=== PATIENT | female | born 1975 | race Caucasian/White ===

== ENCOUNTER 2017-02-05 08:44 | Emergency (ER) | payer MEDICARE, OTHER ==
[2017-02-05 15:28] VITALS: BP 91/62
--- NOTE | 2017-02-05 15:46 | Diagnostic Imaging Report ---
[facility] [address] [facility] [address] [place] [address]. [address] Report Submission Date: Feb 05, 2017 10:41:08 AM CDT Patient Study Name: VICKY GONCALVES Date: Feb 05, 2017 10:14:36 AM CDT Modality Type: CT\SR Gender: F Description: CT PELVIS W/O CONTRAST : 79 Institution: [facility] Physician JAYJAY BARKER - KIARRA CT of the pelvis CLINICAL HISTORY: Fall. Pain. TECHNIQUE: CT of the pelvis is performed in contiguous axial slices with sagittal and coronal reconstructions. FINDINGS: Sacroiliac joints are symmetric. Femoral heads are normally seated in the acetabula. There is no evident fracture. Increased stool is evident within the colon. There is no abnormal free fluid in the pelvis. Muscular structures appear symmetric. IMPRESSION: No fracture. Increased stool in the colon. Electronically signed on Feb 05, 2017 10:41:08 AM CDT by: Rip ZAMBRANO
--- NOTE | 2017-02-05 15:47 | Diagnostic Imaging Report ---
[facility] [address] [facility].[address] [address] Report Submission Date: Feb 05, 2017 10:43:08 AM CDT Patient Study Name: VICKY GONCALVES Date: Feb 05, 2017 10:02:53 AM CDT Modality Type: CR Gender: F Description: LOWER EXTREMITY : 79 Institution: [facility] Physician JAYJAY BARKER - ER Left knee -three views CLINICAL HISTORY: Fall. Pain. FINDINGS: Examination left knee in AP, lateral and sunrise views demonstrates lipohemarthrosis on the cross-table lateral view. There is no evident fracture on these images, but occult fracture needs to be excluded given the presence of fat within the joint. IMPRESSION: Lipohemarthrosis. Rule out occult fracture. Electronically signed on Feb 05, 2017 10:43:08 AM CDT by: Rip ZAMBRANO
--- NOTE | 2017-02-05 15:47 | Diagnostic Imaging Report ---
JAYJAY BARKER [facility] [address] [facility] [address] [address] Report Submission Date: Feb 05, 2017 12:42:18 PM CDT Patient Study Name: VICKY GONCALVES Date: Feb 05, 2017 11:43:30 AM CDT Modality Type: CT\SR Gender: F Description: CT LEG W/O CONTRAST : 79 Institution: [facility] Physician: JAYJAY BARKER Examination: CT extremity History: Possible fracture Comparison exam: Plain film dated 05 February 2017 Technique: Axial imaging with sagittal and coronal reconstruction Findings: On the sagittal reconstructed views within the region of the posterior lateral tibial plateau is a small cortical defect: identified on images 32 - 34 of 49. Remaining cortical margins are intact. Suprapatellar joint effusion. No other gross osseous or soft tissue abnormalities. Impression: Subtle cortical fracture involving the posterolateral margin of the tibial plateau - likely accounts for the joint effusion. Correlate clinically. Electronically signed on Feb 05, 2017 12:42:18 PM CDT by: Romulo ZAMBRANO
--- NOTE | 2017-02-05 15:51 | ED Physician Documentation ---
Fall - HISTORIAN Historian: patient, parent - HPI Stated Complaint: fall Chief Complaint: Fall Additional Information: tripped over weed eater last pm fell on buttocks-parents think pt has pain -not sure where pt demented aphasic from suspect hypoxia during surg small child for conginital glaucome. trouble walking since thionk tra lt lower extremity Onset: yesterday Where: home Context: tripped r: mild, moderate Associated Symptoms:: no loss of consciousness Location of Pain/Injury: denies: head, neck, face, chest, abdomen, upper back, mid back Injury to Right Extremity: none Injury to Left Extremity: other (suspect pelvis lt him-knee) - ROS CONST: no problems NEURO: denies: dizziness MS/SKIN/LYMPH: leg swelling (lt knee psoo swollen tender w/bruise). 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) CVS/RESP: none GI/: denies: problems urinating, nausea, vomiting - PAST HX Past History: other (as above) Allergies/Adverse Reactions: Allergies Allergy/AdvReac Type Severity Reaction Status Date / Time No Known Drug Allergies Allergy Verified 02/05/17 09:25 - SOCIAL HX Smoking History: non-smoker Alcohol Use: none - FAMILY HX Family History: none - REVIEWED ASSESSMENTS Nursing Assessment Reviewed: Yes Vitals Reviewed: Yes ED Results Lab/Radiology - Orders Orders: ED Orders Category Date Time Status CT PELVIS W/O CONTRAST Stat Exams 02/05/[address] W/O [CT PELVIS W/O CONTRAST] Stat Exams 02/05/17 Ordered Fall Physical Exam - Physical Exam General Appearance: mild distress, moderate distress Head: non-tender Neck: non-tender ENT: nml external inspection Resp/CVS: chest non-tender, no ecchymosis, breath sounds nml, no resp. distress , heart sounds nml Abdomen: non-tender Neuro: sensation nml, motor nml, mood/affect nml (for this aphasic patient) Skin: color nml, no rash. No: cyanosis, diaphoresis, pallor, ecchymosis Back: normal inspection Extremities: No: atraumatic, pelvis stable Joint: No: joints nml (pos lalo shoemaker on lt) - Smiley Coma Score Eyes Open: Spontaneous Motor: None (does not definitely localize pain-not unusual per parents) Discharge Clincal Impression: Fracture, tibial plateau Referrals: Dannielle Law MD [Primary Care Provider] - 2 Days Comments: CALLED DR CORDERO discussed cond w/him-she will f/u w DR CORDERO or orthopedic surgeon- pt able to amb fairly well w/knee brace. no pain meds due to pt condition and dkkont want to cover up exaberation condition. Condition: Good Disposition: 01 HOME, SELF-CARE Decision to Admit: NO Decision Time: 15:47
== END 2017-02-05 13:50 | disposition home or self-care (01) ==
LOC: ED 08:44
DX: S82.142A Displaced bicondylar fracture of left tibia, initial encounter for closed fracture (principal); W19.XXXA Unspecified fall, initial encounter; Y93.9 Activity, unspecified; Y99.9 Unspecified external cause status
CPT/HCPCS: 72192; 73562; 73700; 99283

== ENCOUNTER 2018-04-19 08:31 | Outpatient (CLI) | payer MEDICARE, OTHER ==
[2018-04-19 10:02] LABS: APPEARANCE,URINE CLEAR (CLEAR); COLOR,URINE YELLOW (YELLOW); OCCULT BLOOD,URINE NEGATIVE (NEGATIVE); UROBILINOGEN URINE 0.2 Eu (0.2-1.0)
[2018-04-19 10:04] LABS: MEAN CORPUSCULAR HEMOGLOBIN 28.8 pg (28.0-34.0); MEAN CORPUSCULAR VOLUME 94.9 fl (80.0-100.0); eGFR (African) > 60; eGFR (Non-African) > 60
== END 2018-04-19 08:33 ==
LOC: LAB 08:31
PROVIDERS: ATTEND Family Medicine
DX: R41.82 Altered mental status, unspecified (principal); Z79.899 Other long term (current) drug therapy
CPT/HCPCS: 36415; 80053; 80164; 81002; 84443; 85027

== ENCOUNTER 2018-04-27 09:21 | Outpatient (CLI) | payer MEDICARE, OTHER ==
[2018-04-27 18:02] LABS: DIRECT BILIRUBIN <0.2 mg/dL (<0.4); TOTAL PROTEIN 6.6 g/dL (6.0-8.5)
== END 2018-04-27 09:22 ==
LOC: LAB 09:21
PROVIDERS: ATTEND Psychiatry & Neurology Psychiatry
DX: Z79.899 Other long term (current) drug therapy (principal)
CPT/HCPCS: 36415; 80076; 80164

== ENCOUNTER 2018-05-27 09:06 | Outpatient (CLI) | payer MEDICARE, OTHER ==
--- NOTE | 2018-05-27 19:27 | Diagnostic Imaging Report ---
MIKKI KOCH [facility] [address] [facility] [address] [address] Report Submission Date: May 27, 2018 10:28:34 AM CDT Patient Study Name: VICKY GONCALVES Date: May 27, 2018 9:13:05 AM CDT Modality Type: DX Gender: F Description: LOWER EXTREMITY : 79 Institution: [facility] Physician: MIKKI KOCH Examination: Plain film feet History: BILAT FEET, SUBUNGUAL EXOSTOSIS, DERMATOPHYTOSIS OF NAIL, ACQUIRED VALGUS DEFORMITY OF LEFT FOOT, POSTERIOR TIBIAL TENDON DYSFUNCTION OF LEFT LOWER. PT UNABLE TO FOLLOW POSITIONING INSTRUCTIONS (Hx) Findings: 3 views of the right and left foot demonstrates normal cortical margins. No fracture or dislocation. No soft tissue swelling. No joint effusion. Impression: No acute-appearing cortical abnormality. Electronically signed on May 27, 2018 10:28:34 AM CDT by: Romulo ZAMBRANO
--- NOTE | 2018-05-27 19:28 | Diagnostic Imaging Report ---
MIKKI KOCH [facility] [address] [facility] [address] [address] Report Submission Date: May 27, 2018 10:30:05 AM CDT Patient Study Name: VICKY GONCALVES Date: May 27, 2018 9:21:06 AM CDT Modality Type: DX Gender: F Description: LOWER EXTREMITY : 79 Institution: [facility] Physician: MIKKI KOCH Examination: Plain film left ankle History: LEFT ANKLE, POSTERIOR TIBIAL TENDON DYSFUNCTION OF LEFT LOWER, ACQUIRED VALGUS DEFORMITY OF LEFT FOOT. PT UNABLE TO FOLLOW POSITIONING INSTRUCTIONS (Hx Findings: 3 views of the left ankle demonstrates normal cortical margins. No fracture or dislocation. Talar dome is intact. No soft tissue swelling. No joint effusion. Impression: No acute cortical abnormality. Electronically signed on May 27, 2018 10:30:05 AM CDT by: Romulo ZAMBRANO
== END 2018-05-27 09:08 ==
LOC: RAD 09:06
PROVIDERS: ATTEND Podiatrist Foot & Ankle Surgery
DX: B35.1 Tinea unguium (principal); M21.072 Valgus deformity, not elsewhere classified, left ankle; M76.822 Posterior tibial tendinitis, left leg; M89.8X9 Other specified disorders of bone, unspecified site
CPT/HCPCS: 73610

== ENCOUNTER 2019-05-04 16:16 | Outpatient (CLI) | payer MEDICARE, OTHER ==
[2018-12-28 19:40] VITALS: BP 142/78
[2019-05-04 17:16] LABS: BASOPHILS % 0.5 % (0.0-1.5); NEUTROPHILS # 5.9 # k/uL (1.4-7.7)
[2019-05-04 17:35] LABS: eGFR (Non-African) > 60
--- NOTE | 2019-05-05 08:06 | Diagnostic Imaging Report ---
VALERIE CASAS [facility] [address] [facility] [address] [place], [place]. [address] Report Submission Date: May 04, 2019 4:56:43 PM CDT Patient Study Name: VICKY GONCALVES Date: May 04, 2019 4:34:17 PM CDT Modality Type: DX Gender: F Description: CHEST 2VIEW : 79 Institution: [facility] Physician: VALERIE CASAS Examination: PA and lateral chest. History: Evaluate lung steward. Comparison exam: None provided. Findings: PA and lateral views of the chest demonstrates a normal cardiac and mediastinal silhouette. No focal infiltrate. No blunting of the costophrenic margins. Osseous structures are appropriate for age. Impression: No acute appearing pulmonary process. Electronically signed on May 04, 2019 4:56:43 PM CDT by: Romulo ZAMBRANO
== END 2019-05-04 16:18 ==
LOC: LAB 16:16
PROVIDERS: ATTEND Family Medicine
DX: R61 Generalized hyperhidrosis (principal)
CPT/HCPCS: 36415; 71046; 80053; 82670; 83001; 83002; 84443; 85025

== ENCOUNTER 2019-08-15 14:33 | Inpatient (IN) | payer MEDICARE, OTHER ==
[2019-08-15] MEDS ORDERED: IPRATROPIUM/ALBUTEROL SULFATE 3 ML AMPUL.NEB NEB ONE (15:04)
[2019-08-15] MEDS ORDERED: 0.9 % SODIUM CHLORIDE 1,000 ML IV ONE (15:05)
--- NOTE | 2019-08-15 15:08 | ED Physician Documentation ---
Upper Respiratory Symptoms - HISTORIAN Historian: parent - HPI Chief Complaint: Upper Respiratory Symptoms Additional Information: 44 year old female presents with her mom and dad; patient has MR and requires care. Mom states that patient developed a fever on Thursday (2 days ago) of 103; cough and congestion; a script was called in for Tamiflu today but patient has not started it yet. Mom states that patient has not been able to take her meds; she is not eating or drinking; due to disability patient is not able to maintain adequate oral intake and is risk of dehydration; sepsis. Patient is tachycardic at 107; lethargic; upper airway secretions; requiring max assist with ADL's. Onset: days ago Duration: sudden-Onset Severity: moderate Associated Symptoms: fever, chills, runny nose, sinus drainage Worsened by Deep Breath: No Further Comments: no - ROS CONST/EYES: weakness CVS/RESP: none LYMPH: denies: swollen glands GI/: denies: vomiting, nausea MS/SKIN: muscle aches - PAST HX Lung Disease: other (MR) Immunizations: UTD Allergies/Adverse Reactions: Allergies Allergy/AdvReac Type Severity Reaction Status Date / Time No Known Drug Allergies Allergy Verified 08/15/19 15:12 - SOCIAL HX Smoking History: non-smoker Alcohol Use: none Drug Use: none - FAMILY HX Family History: none - VITAL SIGNS Vital Signs: Vital Signs Temp Pulse Resp BP Pulse Ox 142/78 12/28/18 19:42 - REVIEWED ASSESSMENTS Nursing Assessment Reviewed: Yes Vitals Reviewed: Yes Progress - Progress Progress: 14:30 patient more alert after some fluids; parents at the bedside ED Results Lab/Radiology - Lab Results Lab Results: Influenza A positive - Radiology Radiology Impressions: Exam: Chest two views. History: Cough. The examination is compared to study dated May 04, 2019. Lung steward are well aerated. Right lower lobe infiltrates are noted. No pleural effusions are seen. Heart and mediastinal contour are normal. Impression: Patchy right lower lobe infiltrates. Electronically signed on Aug 15, 2019 3:54:08 PM PRECONSTRUCTION MANAGER by: Stoney Lind - Orders Orders: ED Orders Category Date Time Status Place IV Lock 1T Care 08/15/19 15:05 Ordered CHEST 2VIEW [RAD] Stat Exams 08/15/19 Ordered BLOOD CULTURE Stat Lab 08/15/19 Ordered CBC/PLATELET/DIFF Routine Lab 08/15/19 15:05 Ordered CMP Routine Lab 08/15/19 15:05 Ordered INFLUENZA A&B Stat Lab 08/15/19 Uncollected Ipratropium/Albuterol Sulfate [Duoneb] Med 08/15/19 15:04 Once 3 ml NEB NOW ONE NORMAL SALINE @ 1000 MLS/HR ( 1000ml BOLUS) Med 08/15/19 15:05 Ordered 0.9 % Sodium Chloride [Normal Saline] 1,000 ml IV Q1H Upper Respiratory Symptoms - EXAM General Appearance: moderate distress EENT: eyes nml inspection, PERRL, ear nml, rhinorrhea, pharynx nml Neck: normal inspection, supple Respiratory: accessory muscle use, rhonchi Abdomen: non-tender, nml bowel sounds CVS: heart sounds normal, equal pulses, tachycardia Skin: warm,dry, pallor Extremities: other (appropriate (MR)) Neuro/Psych: neuro intact, mood/affect nml, other ((MR)) Discharge Clincal Impression: Right lower lobe pulmonary infiltrate, Influenza A, Pneumonia Comments: Dr. Law admitting Will start patient on Tamiflu for influenza Will treat pneumonia with Zithromax and Rocephin Mom will stay in room with patient Condition: Stable Disposition: ADMITTED INPATIENT Decision to Admit: [id number] Decision Time: 17:00
[2019-08-15 15:58] LABS: eGFR (Non-African) > 60
--- NOTE | 2019-08-15 16:00 | Diagnostic Imaging Report ---
PATIENT MR#: [id number] PATIENT PATIENT NAME: VICKY GONCALVES DATE OF : 1975 REFERRING PHYSICIAN: Jesica Roy EXAM DATE: 08/15/2019 ACCESSION NUMBER: [id number] EXAM DESCRIPTION: CHEST 2VIEW Exam: Chest two views. History: Cough. The examination is compared to study dated May 04, 2019. Lung steward are well aerated. Right lower lobe infiltrates are noted. No pleural effusions are seen . Heart and mediastinal contour are normal. Impression: Patchy right lower lobe infiltrates. Read by: Dr. Stoney Tanner Transcribed by: Transcribed Date: Electronically signed by: Dr. Stoney Tanner Date signed: 08/15/2019 3:58:47 PM
[2019-08-15] MEDS ORDERED: cefTRIAXone SODIUM 1 GM in 0.9 % SODIUM CHLORIDE 50 ML IV ONE (16:22)
[2019-08-15] MEDS ORDERED: OSELTAMIVIR PHOSPHATE 30 MG/5 ML SUSP.RECON PO ONE (16:36)
[2019-08-15] MEDS ORDERED: ACETAMINOPHEN ORAL SOLUTION 160 MG/5 ML CUP PO PRN (17:15)
[2019-08-15] MEDS ORDERED: 0.9 % SODIUM CHLORIDE 250 ML IV ONE ×2 (17:45→17:52)
[2019-08-15] MEDS ORDERED: AZITHROMYCIN 500 MG VIAL IV ONE ×2 (17:45→17:52)
[2019-08-15 18:04] VITALS: BMI 19.3
[2019-08-15] MEDS: 0.9 % SODIUM CHLORIDE 1,000 ML IV SCH (18:10)
[2019-08-15] MEDS: IPRATROPIUM/ALBUTEROL SULFATE 3 ML AMPUL.NEB NEB SCH (18:11)
[2019-08-15] MEDS: ENOXAPARIN SODIUM 40 MG/0.4 ML DISP.SYRIN SQ SCH (18:12)
[2019-08-15] MEDS: AZITHROMYCIN 500 MG in 0.9 % SODIUM CHLORIDE 250 ML IV SCH (18:13)
--- NOTE | 2019-08-15 20:47 | History and Physical Report ---
History of Present Illnes - History of Present Illness Reason for Visit: Weakness History of Present Illness: Patient with severe MR presented to the ER with fever and weakness. She developed fever 2 days ago, up to 103, decreased appetite and drinking, cough, and weakness. She takes ativan for catatonia but has been unable to take this. In the ER she was found to have Influenza A and a RLL infiltrate. 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) - Past Surgical History Past Surgical History: Hysterectomy, Other (Glaucoma) - Past Family History Mother Family History: Other (Bipolar) Father Family History: CAD - Past Social History Smoke: No Occupation: Disabled Alcohol: None Drugs: None Lives: With Family (parents - Frank and Lissy) Domestic Violence: Negative - Health Maintenance Health Maintenance: denies: Influenza Vaccine, Pneumococcal Vaccine, Pap Smear, Mammogram, Colonoscopy Pneumonia Vaccine: No Resuscitation Status: Resusciation Status Resuscitation Status Full Code Review of Systems - Review of Systems Constitutional: Fever, Weakness Eyes: negative: pain ENT: Nose Discharge, Nose Congestion Respiratory: Cough. negative: Shortness of Breath Cardiovascular: negative: Chest Pain Gastrointestinal: negative: Nausea, Vomiting, Abdominal Pain, Diarrhea, Constipation Genitourinary: negative: Dysuria, Frequency Musculoskeletal: negative: Deferred Skin: negative: Rash Neurological: Weakness - Medications/Allergies Allergies/Adverse Reactions: Allergies Allergy/AdvReac Type Severity Reaction Status Date / Time No Known Drug Allergies Allergy Verified 08/15/19 15:12 Current Inpatient Medications: Current Inpatient Medications Acetaminophen (Tylenol Children's Liquid) 650 mg PO Q4H PRN PRN Reason: Fever >101 Stop: 09/14/19 17:59 Albuterol/Ipratropium (Duoneb) 3 ml NEB Q6 [facility] Stop: 09/14/19 17:59 Last Admin: 08/15/19 18:11 Dose: Not Given Enoxaparin Sodium (Lovenox) 40 mg SQ DAILY [facility] Stop: 08/29/19 17:59 Last Admin: 08/15/19 18:12 Dose: 40 mg Azithromycin 500 mg/ Sodium (Chloride) 250 mls @ 250 mls/hr IV Q24H [facility] Stop: 08/19/19 18:59 Last Admin: 08/15/19 18:13 Dose: 250 mls/hr Ceftriaxone Sodium 1 gm/ (Sodium Chloride) 50 mls @ 100 mls/hr IV DAILY [facility] Stop: 09/15/19 15:59 Sodium Chloride (Normal Saline) 1,000 mls @ 125 mls/hr IV Q10H [facility] Stop: 09/14/19 16:59 Last Admin: 08/15/19 18:10 Dose: 125 mls/hr Lorazepam (Ativan) 2 mg PO TID [facility] Stop: 09/14/19 20:59 Oseltamivir Phosphate (Tamiflu Susp) 75 mg PO BID [facility] Stop: 09/15/19 08:59 Exam - Exam Vital Signs: Vital Signs (72 hours) 08/15/19 08/15/19 08/15/19 14:33 17:00 17:11 Temperature 99.9 F H 99.8 F H 100.7 F H Pulse Rate [ 107 H 104 H Pulse ox] Pulse Rate [ 106 H Right] Respiratory 20 22 20 Rate Blood Pressure 108/77 100/60 [Right Arm] O2 Sat by Pulse 93 93 91 L Oximetry 08/15/19 08/15/19 17:40 17:58 Temperature 99.8 F H 99.8 F H Pulse Rate [ 106 H Pulse ox] Pulse Rate [ 106 H Right] Respiratory 22 22 Rate Blood Pressure 100/60 100/60 [Right Arm] O2 Sat by Pulse 93 93 Oximetry General: Alert, Cooperative, Moderate distress (Appears ill. Moves spontaneously and looks around. No verbal (normal)). No: Oriented to Person, Oriented to Place, Oriented to Time HEENT: No: Mouth Mucous membr. moist/[place] Neck: Normal Range of Motion Lungs: Rhonchi Cardiovascular: Tachycardia Abdomen: Normal bowel sounds, Soft Integumentary: Pale Extremities: No edema Neurological: Generalized Weakness Psych/Mental Status: No: Mental status NL, Mood NL, Appropriate Affect, Intact Judgment - Laboratory Results Laboratory Results: Laboratory Results 08/15/19 08/15/19 15:35 15:35 WBC 12.40 H RBC 4.96 Hgb 14.1 Hct 42.4 MCV 86.0 MCH 28.4 MCHC 33.2 RDW 12.6 Plt Count 121 L Seg Neutrophils % Pending Sodium 141 Potassium 3.5 Chloride 102 Carbon Dioxide 29 Anion Gap 13.5 BUN 23 H Creatinine 0.73 Estimated Creat Clear 97 Est GFR ( Amer) > 60 Est GFR (Non-Af Amer) > 60 Glucose 144 H Lactate 2.0 Calcium 9.4 Total Bilirubin 0.9 AST 71 H ALT 26 Alkaline Phosphatase 63 Total Protein 8.0 Albumin 4.3 Assessment/Plan - Assessment/Plan (1) Severe mental handicap Status: Chronic Current Visit: Yes Plan: Mom will stay with Melody while in the hospital. (2) Dehydration Status: Acute Current Visit: Yes Plan: IVF bolus given in ER. Continue IV hydration in Acute setting. (3) Catatonia Status: Chronic Current Visit: Yes Plan: Will attempt to give oral ativan but may need to do SL or liquid or IV. (4) Influenza A Status: Acute Current Visit: Yes Plan: Tamiflu started in ER. Will complete 5 day course. May need to go to liquid as patient tends to clench teeth. (5) Right lower lobe pulmonary infiltrate Status: Acute Current Visit: Yes Plan: Patient will be admitted for treatment. Started on IV rochephin and zithromax. Duonebs ordered. Blood cultures drawn. Lovenox for DVT prevention. VTE Assessment - RISK FACTOR SCORE VTE RISK FACTOR SCORES: AGE 40-60 YEARS, ACUTE INFECTION OTHER THEN SEPSIS, ANTICIPATED BED CONFINEMENT OR IMMOBILIZATION > 24 HOURS - RISK VTE HIGH RISK: SCORE OF 3-4 (RISK PROXIMAL DVT 4-8%) PROPHYLAXIS NEEDED
[2019-08-15] MEDS ORDERED: ACETAMINOPHEN ORAL SOLUTION 325 MG/10.15 ML CUP ONE (20:56)
[2019-08-15] MEDS: LORazepam 0.5 MG TABLET PO SCH (20:57)
[2019-08-16] MEDS ORDERED: 0.9 % SODIUM CHLORIDE 1,000 ML IV ONE (01:53)
[2019-08-16] MEDS: 0.9 % SODIUM CHLORIDE 1,000 ML IV SCH (02:08)
[2019-08-16] MEDS: IPRATROPIUM/ALBUTEROL SULFATE 3 ML AMPUL.NEB NEB SCH ×5 (02:08→23:38)
[2019-08-16 07:29] LABS: eGFR (Non-African) > 60
[2019-08-16 07:48] LABS: SEGMENTED NEUTROPHILS % 60 % (39-79)
--- NOTE | 2019-08-16 07:54 | Inpatient Progress Note ---
Subjective - Required Recertification Statement I anticipate X number of days because-include discharge plan: 1 - Review of Systems Subjective: Patient acting better. Surprisingly ate breakfast this morning. Has had 2 diarrhea stools since she was here. Up, eating, looking around. Objective - Exam Vitals and I&O: Vital Signs Temp 99.4 F 08/16/19 06:00 Pulse 118 H 08/16/19 06:00 Resp 18 08/16/19 06:00 BP 110/68 08/16/19 06:00 Pulse Ox 94 08/16/19 06:00 Intake & Output 08/15/19 08/15/19 08/16/19 11:59 23:59 11:59 Intake Total 600 Balance 600 Weight 50.984 kg Intake: IV 550 Right Hand 550 Oral 50 Other: Voiding Method Incontinent Incontinent # Voids 1 # Bowel Movements 2 General: Alert, No acute distress Lungs: Rhonchi Cardiovascular: Regular rate - Results Results: Laboratory Results WBC 6.80 K/ul (4.00-12.00) 08/16/19 05:50 RBC 4.25 M/ul (3.90-5.20) 08/16/19 05:50 Hgb 12.0 g/dL (11.5-16.0) 08/16/19 05:50 Hct 36.2 % (34.5-46.5) 08/16/19 05:50 MCV 85.0 fl (80.0-100.0) 08/16/19 05:50 MCH 28.3 pg (28.0-34.0) 08/16/19 05:50 MCHC 33.2 g/dL (30.0-36.0) 08/16/19 05:50 RDW 12.0 % (11.3-14.3) 08/16/19 05:50 Plt Count 103 K/mm3 (130-400) L 08/16/19 05:50 Seg Neutrophils % 60 % (39-79) 08/15/19 15:35 Band Neutrophils % 14 % (0-12) H 08/15/19 15:35 Lymphocytes % 14 % (16-50) L 08/15/19 15:35 Monocytes % 6 % (0-11) 08/15/19 15:35 Eosinophils % 3 % (0-7) 08/15/19 15:35 Metamyelocytes % 1 % (0-0) H 08/15/19 15:35 Reactive Lymphocytes 2 % (0-5) 08/15/19 15:35 Plt Morphology Comment Normal (NORMAL) 08/15/19 15:35 RBC Morph Comment Normal (NORMAL) 08/15/19 15:35 Sodium 146 mmol/L (137-145) H 08/16/19 05:50 Potassium 3.4 mmol/L (3.5-5.1) L 08/16/19 05:50 Chloride 102 mmol/L (98-107) 08/15/19 15:35 Carbon Dioxide 27 mmol/L (22-30) 08/16/19 05:50 Anion Gap 13.5 08/15/19 15:35 BUN 20 mg/dL (7-17) H 08/16/19 05:50 Creatinine 0.57 mg/dL (0.52-1.04) 08/16/19 05:50 Estimated Creat Clear 121 08/16/19 05:50 Est GFR ( Amer) > 60 (60-) 08/16/19 05:50 Est GFR (Non-Af Amer) > 60 (60-) 08/16/19 05:50 Glucose 112 mg/dL (74-106) H 08/16/19 05:50 Lactate 2.0 U/L (0.7-2.1) 08/15/19 15:35 Calcium 8.9 mg/dL (8.4-10.2) 08/16/19 05:50 Total Bilirubin 0.5 mg/dL (0.2-1.3) 08/16/19 05:50 AST 57 U/L (15-46) H 08/16/19 05:50 ALT 22 U/L (4-35) 08/16/19 05:50 Alkaline Phosphatase 48 U/L (38-126) 08/16/19 05:50 Total Protein 6.6 g/dL (6.3-8.2) 08/16/19 05:50 Albumin 3.3 g/dL (3.5-5.0) L 08/16/19 05:50 Influenza A (Rapid) Positive (NEGATIVE) H 08/15/19 15:40 Influenza B (Rapid) Negative (NEGATIVE) 08/15/19 15:40 Assessment/Plan - Assessment/Plan (1) Severe mental handicap Status: Chronic Current Visit: Yes (2) Dehydration Status: Acute Current Visit: Yes Plan: Improving. Na to 146 this morning. Will change to D5 1/2 NS - first bag to have potassium as she is a little low at 3.4 today. (3) Catatonia Status: Chronic Current Visit: Yes (4) Influenza A Status: Acute Current Visit: Yes Plan: Continue tamiflu and isolation precautions. (5) Right lower lobe pulmonary infiltrate Status: Acute Current Visit: Yes Plan: Continue IV antibiotics. Add yogurt to each meal to help with diarrhea.
[2019-08-16] MEDS ORDERED: POTASSIUM CHLOR 20 MEQ D51/2NS 1,000 ML IV SCH ×2 (08:00→08:02)
[2019-08-16] MEDS ORDERED: ENOXAPARIN SODIUM 30 MG/0.3 ML DISP.SYRIN SQ ONE (08:17)
[2019-08-16] MEDS ORDERED: OSELTAMIVIR PHOSPHATE 75 MG CAPSULE PO ONE (08:18)
[2019-08-16] MEDS ORDERED: cefTRIAXone SODIUM 1 GM INJ ONE (08:19)
[2019-08-16] MEDS ORDERED: 0.9 % SODIUM CHLORIDE 100 ML IV ONE (08:20)
[2019-08-16] MEDS ORDERED: ACETAMINOPHEN ORAL SOLUTION 325 MG/10.15 ML CUP PO PRN (09:00)
[2019-08-16 09:26] LABS: SEGMENTED NEUTROPHILS % 66 % (39-79)
[2019-08-16] MEDS: LORazepam 0.5 MG TABLET PO SCH ×3 (10:53→20:41)
[2019-08-16] MEDS: ENOXAPARIN SODIUM 40 MG/0.4 ML DISP.SYRIN SQ SCH (10:53)
[2019-08-16] MEDS: OSELTAMIVIR PHOSPHATE 30 MG/5 ML SUSP.RECON PO SCH ×2 (11:01→20:42)
[2019-08-16] MEDS: cefTRIAXone SODIUM 1 GM in 0.9 % SODIUM CHLORIDE 50 ML IV SCH (11:24)
[2019-08-16] MEDS: AZITHROMYCIN 500 MG in 0.9 % SODIUM CHLORIDE 250 ML IV SCH (17:09)
[2019-08-16] MEDS: DEXTROSE 5 %-0.45 % SOD CHLORD 1,000 ML IV SCH (20:41)
[2019-08-17] MEDS: IPRATROPIUM/ALBUTEROL SULFATE 3 ML AMPUL.NEB NEB SCH ×2 (05:33→13:18)
[2019-08-17] MEDS: DEXTROSE 5 %-0.45 % SOD CHLORD 1,000 ML IV SCH (06:01)
[2019-08-17 06:41] LABS: BASOPHILS % 0.4 % (0.0-1.5); NEUTROPHILS # 2.3 # k/uL (1.4-7.7)
[2019-08-17 06:54] LABS: eGFR (Non-African) > 60
[2019-08-17] MEDS ORDERED: POTASSIUM CHLORIDE 20 MEQ TABLET.ER PO ONE (08:03)
[2019-08-17] MEDS: LORazepam 0.5 MG TABLET PO SCH ×2 (08:35→14:41)
[2019-08-17] MEDS: OSELTAMIVIR PHOSPHATE 30 MG/5 ML SUSP.RECON PO SCH (08:35)
[2019-08-17] MEDS: ENOXAPARIN SODIUM 40 MG/0.4 ML DISP.SYRIN SQ SCH (08:36)
[2019-08-17] MEDS: cefTRIAXone SODIUM 1 GM in 0.9 % SODIUM CHLORIDE 50 ML IV SCH (08:36)
--- NOTE | 2019-08-17 12:30 | Discharge Summary ---
Discharge Summary - Discharge [place] Admission Date: 08/15/19 Discharge Date: 08/17/19 Discharge To: Home History of Present Illness: Patient with severe MR presented to the ER with fever and weakness. She developed fever 2 days ago, up to 103, decreased appetite and drinking, cough, and weakness. She takes ativan for catatonia but has been unable to take this. In the ER she was found to have Influenza A and a RLL infiltrate. Condition at Discharge: Stable Home Medications: Ambulatory Orders Medication Instructions Recorded LevoFLOXacin [Levaquin] 500 mg PO DAILY #7 tablet 08/16/19 Consultations this Visit: None Procedures this Visit: None Allergies/Adverse Reactions: Allergies Allergy/AdvReac Type Severity Reaction Status Date / Time No Known Drug Allergies Allergy Verified 08/15/19 15:12 Discharge Summary: Patient was admitted with significant dehydration from influenza A and pneumonia. She was started on oral tamiflu and IV rocephin/zithromax as well as IVF hydration. She was bolused with NS and this was continued until her K+ came back a little low and sodium a bit elevated. IVF were changed to D5 1/2 NS with 20 of KCL for a liter then to straight D5 1/2 NS. On day of discharge patient was much improved. Eating normal, up in chair, looking around. K dropped to 2.7 so was replaced orally with 80 meq of KCL. She was discharged home in good condition. Hospital Course: Discharge Dx: Influenza A. Pneumonia. Severe mental handicap with h/o catatonia
[2019-08-17 15:34] VITALS: BP 124/76
== END 2019-08-17 15:00 | disposition home or self-care (01) | DRG 194 ==
LOC: ED 14:33 → SOUTH 16:46 → UNDOADMIN 16:46
PROVIDERS: ADMIT Family Medicine; ATTEND Nurse Practitioner Family
DX: J10.00 Influenza due to other identified influenza virus with unspecified type of pneumonia (principal); F20.2 Catatonic schizophrenia; J18.9 Pneumonia, unspecified organism; E86.0 Dehydration; F79 Unspecified intellectual disabilities; Z90.710 Acquired absence of both cervix and uterus
CPT/HCPCS: 36415; 80048; 80053; 83605; 85025; 87040; 87400; 94640; 99221; 99231; 99238; J0456; J0696; J1650; J7050; A9270; J7030; J7070; S1016; S5010